=== PATIENT | male | born 1955 | race Caucasian/White ===

== ENCOUNTER → 2024-03-06 | Outpatient (CLI) | payer MEDICARE ==
[~2024-03-06] MED LIST: ASCO500 PO; ASPI81CH PO; Aspir 8181 MG PO; Aspirin EC81 MG PO; CIPR500; DILT180 PO; ELIQUIS5 MG PO; FISH1000 PO; FLONASE ALLERG9.9 ML NS; Flonase 0.05% N16 GM; GLUC500 PO; Hair, Skin & N1 EACH PO; IBUP400 PO; LANS15EC PO; LANS30EC PO; LEVSOD100 PO; LISI5 PO; METF500 PO; METO25ER PO; METO50ER PO; NIAC500 PO; PSEU120ER PO; Prednisone20 MG PO; Tambocor100 MG PO; Valtrex1000 MG PO
[2024-03-06 13:22] LABS: BASOPHILS ABSOLUTE AUTO 0.03 K/mm3 (0.00-0.23); BASOPHILS PERCENT AUTO 1 % (0-2); EOSINOPHILS ABSOLUTE AUTO 0.16 K/mm3 (0.00-0.68); EOSINOPHILS PERCENT AUTO 3 % (0-6); Hematocrit 41.6 % (37.0-53.0); Hemoglobin 14.1 g/dL (13.5-17.5); IMMATURE GRAN ABSOLUTE AUTO 0.01 K/mm3 (0.00-0.10); IMMATURE GRAN PERCENT AUTO 0 % (0-1); LYMPHOCYTES ABSOLUTE AUTO 1.74 K/mm3 (0.84-5.20); LYMPHOCYTES PERCENT AUTO 29 % (21-46); MONOCYTES ABSOLUTE AUTO 0.44 K/mm3 (0.16-1.47); MONOCYTES PERCENT AUTO 7 % (4-13); Mean Corpuscular HGB 31.1 pg (26.0-34.0); Mean Corpuscular HGB Conc 33.9 g/dL (31.5-36.5); Mean Corpuscular Volume 92 fL (80-100); NEUTROPHILS ABSOLUTE AUTO 3.54 K/mm3 (1.96-9.15); NEUTROPHILS PERCENT AUTO 60 % (41-73); Platelet Count 210 K/mm3 (150-400); RDW Coefficient Variation 12.7 % (11.7-14.2); RDW Standard Deviation 42.2 fL (35.1-46.3); Red Blood Cell Count 4.54 M/mm3 (4.30-5.90); White Blood Cell Count 5.92 K/mm3 (4.00-11.30)
[2024-03-06 13:33] LABS: Albumin, Blood 3.3 g/dL (3.4-5.0); Bilirubin, Total 0.4 mg/dL (0.1-1.0); Bun/Creatinine Ratio 19.8 (12.0-20.0); Calcium, Blood 8.6 mg/dL (8.5-10.1); Creatinine, Blood 0.91 mg/dL (0.60-1.20); Globulin, Blood 3.2 g/dL (2.2-4.0); Potassium, Blood 4.3 mmol/L (3.5-5.5); Total Protein, Blood 6.5 g/dL (6.4-8.2)
== END | disposition home or self-care (01) ==
LOC: LAB SHORT 13:18 → LAB 13:18
PROVIDERS: Physician Assistant
DX: R10.9 Unspecified abdominal pain (principal)
CPT/HCPCS: 80053; 83690; 85025

== ENCOUNTER 2025-07-15 07:19 | Day surgery (SDC) | payer MEDICARE, BC ==
[2025-07-15] VITALS (11 sets, daily range): BP systolic 95–137; BP diastolic 62–87
[~2025-07-15] VITALS: Ht 154.9 cm; Wt 116.1 kg
[~2025-07-15 07:19] MED LIST changes: +ATOR10 PO; +ELIQUIS5 M3 PO; +FARXIGA10 MG PO; +FISH OIL 1,0001 EA10 PO; +FLONASE ALLERG9.9 ML; +Flecainide Acet50 MG PO; +GLIP5 PO
[2025-07-15] MEDS ORDERED: NS 250 ML IV ONE (07:50)
[2025-07-15] MEDS ORDERED: NS 1,000 ML IV ONE ×2 (07:50→08:15)
[2025-07-15] MEDS ORDERED: Heparin Sodium 1000 Units/ML 10ML MDV ONE (07:50)
[2025-07-15] MEDS ORDERED: NiCARdipine HCL 1,000 MCG/5 ML SYR ONE (07:51)
[2025-07-15] MEDS ORDERED: FentaNYL Citrate 50 MCG/ML 2 ML Injection ONE (08:22)
[2025-07-15] MEDS ORDERED: Midazolam HCl 1MG / ML 2ML Vial ONE (08:22)
--- NOTE | 2025-07-15 09:15 | NUR ---
ASSUMED CARE OF PT POST PROCEDURE. PT AWAKE AND CONVERSING APPROPRIATELY; DENIES PAIN POST PROCEDURE. MONITOR SB/SR 50'S, B/P 120/87, SPO2 97 % RA. R ULNAR SITE NO SWELLING/HEMATOMA, TR BAND IN PLACE; RUE: POSITIVE PLEUTH POST TR BAND PLACEMENT.
--- NOTE | 2025-07-15 11:20 | NUR ---
PT AMB TO BATHROOM, GAIT STEADY, SITE UNCHANGED. PT DRESSED SELF WITHOUT ISSUE. TR BAND REMOVED, CLOTH DOT AND WRIST IMMOBILIZER PLACED; IV REMOVED-CANNULA INTACT.
--- NOTE | 2025-07-15 11:34 | NUR ---
PT AND RECEIVED DISCHARGE INSTRUCTIONS, MED LIST AND AFTER CARE INSTRUCTIONS; VERBALIZED GOOD UNDERSTANDING. PT LEFT FACILITY VIA W/C, CONDITION STABLE.
== END 2025-07-15 11:34 | disposition home or self-care (01) ==
LOC: MHTC 07:19
DX: R07.89 Other chest pain (principal); R94.39 Abnormal result of other cardiovascular function study; I48.92 Unspecified atrial flutter; I11.0 Hypertensive heart disease with heart failure; I50.30 Unspecified diastolic (congestive) heart failure; E11.9 Type 2 diabetes mellitus without complications; E03.9 Hypothyroidism, unspecified; G47.33 Obstructive sleep apnea (adult) (pediatric); I77.819 Aortic ectasia, unspecified site; Z79.01 Long term (current) use of anticoagulants; Z79.84 Long term (current) use of oral hypoglycemic drugs; Z79.890 Hormone replacement therapy; Z79.899 Other long term (current) drug therapy; Z88.8 Allergy status to other drugs, medicaments and biological substances
CPT/HCPCS: 76937; 93454; 99152; 99153; A9270; C1769; C1887; C1894; J1644; J2250; J3010; J7030; J7050; Q9967